=== PATIENT | male | born 1970 | race Caucasian/White ===

== ENCOUNTER 2017-10-05 12:11 | Inpatient (IN) | payer SELFPAY ==
[~2017-10-05 12:11] MED LIST: ISOVUE-370 76%-LOCM 1 ML ONE
[2017-10-05 13:00] LABS: Hemoglobin 15.1 g/dL (14.0-18.0); Mean Corpuscular HGB CONC 32.5 g/dL (32.0-36.0); Mean Corpuscular Hemoglobin 29.3 pg (27.0-31.0); Mean Corpuscular Volume 90.2 fl (80.0-94.0); Mean Platelet Volume 9.7 fL (7.4-10.4); Platelet Count 190 thou/uL (130-400); RBC Distribution Width 11.8 % (11.5-14.5); Red Blood Cell (RBC) Count 5.16 mill/uL (4.70-6.10); White Blood Cell (WBC) Count 18.3 thou/uL (4.8-10.8)
[2017-10-05 13:19] LABS: Band 18 % (5-11); Lymphocytes 7 % (21-51); MDiff Complete? YES; Monocytes 5 % (0-10); Neutrophil 70 % (42-75); RBC Morphology Normal
[2017-10-05 13:22] LABS: ALT (SGPT) 18 U/L (8-55); AST (SGOT) 16 U/L (5-34); Alkaline Phosphatase 63 U/L (40-150); Anion Gap 15 mmol/L (10-20); BUN (Urea Nitrogen) 12 mg/dL (8.9-20.6); Bilirubin, Total 1.4 mg/dL (0.2-1.2); CK (CPK) 142 U/L (30-200); Calc. Creatinine Clearance 0 mL/min (70-130); Carbon Dioxide 24 mmol/L (22-29); Chloride 100 mmol/L (98-107); Estimated GFR-MDRD Greater than 90; Globulin 4.1 g/dL (2.4-3.5); Glucose 127 mg/dL (70-105); Potassium 4.1 mmol/L (3.5-5.1); Protein, Total 8.1 g/dL (6.0-8.3); Sodium 135 mmol/L (136-145)
[2017-10-05 13:26] LABS: CKMB 2.5 ng/mL (0-6.6); Troponin I Less than 0.010 ng/mL (< 0.028)
--- NOTE | 2017-10-05 13:49 | RAD ---
CHEST ONE VIEW: History: Chest pain. FINDINGS: Cardiac silhouette and pulmonary vasculature are unremarkable. Mediastinum is midline. No lobar conso lidation or evidence of pneumothorax. personnel monitor leads overlie the chest. IMPRESSION: No active cardiopulmonary abnormalities are demonstrated. POS: TPC
--- NOTE | 2017-10-05 15:15 | CT ---
CT ANGIOGRMA THORAX WITH IV CONTRAST AND 3D RECONSTRUCTIONS: DATE: 10/05/17. HISTORY: Dyspnea, shortness of breath for the past week. Productive cough. COMPARISON: None available. FINDINGS: The thoracic aorta is normal in caliber without evidence of an aortic dissection. No filling defects are seen in the central or segmental pulmonary arteries. There is significant res piratory motion artifact in the lower lobes which limits adequate evaluation of the subsegmental pulm onary arteries, although no definitive filling defect is seen within the visualized opacified segment al pulmonary arteries. There are reticulonodular opacities with [id number]-type appearance involving the right upper lobe. No discrete pulmonary nodule is seen and there is no evidence of a pleural effusion. There are enlarged mediastinal lymph nodes with subcarinal lymph node measuring 1.4 cm and pretrachea l lymph node measuring approximately 0.9 cm as well a prominent prevascular space lymph node measurin g 1.2 cm in short axis dimension. Mediastinal lymphadenopathy may be reactive in origin. There are calcifications in the region of the coracoclavicular ligament which may be related to prior injury. No lytic or sclerotic osseous lesions are seen; however, there is a small hemangioma in the T9 verteb ral body. Imaging of the upper abdomen demonstrates 2 large cystic lesions within the superior pole right kidne y measuring 5.1 cm and 4.5 cm respectively, although the cystic lesions are incompletely imaged for m ore accurate measurement. Fluid attenuation is present within the visualized portions of the these c ystic structures probably related to superior pole right renal cyst, although incompletely assessed d ue to incomplete imaging. The remainder of the upper abdomen demonstrates a normal appearance. IMPRESSION: 1. Reticulonodular densities with rhhm-kt-unh-type appearance involving the right upper lobe. Findi ngs may be related to atypical infectious process. 2. Suboptimal evaluation of the subsegmental pulmonary arteries in the lower lobes bilaterally due t o prominent respiratory motion. However, there is otherwise no evidence of a pulmonary embolus invol ving the remaining pulmonary arteries bilaterally. 3. Mediastinal lymphadenopathy which may be reactive in origin. 4. Incomplete imaging of 2 hypodense right renal cystic lesions. However, these cystic lesions do d emonstrate fluid attenuation where visualized suggesting these are related to bilateral renal cysts. However, nonemergent renal sonogram would be helpful to fully characterize and evaluate these cystic lesions. POS: PADMINI
[2017-10-05] MEDS ORDERED: cefTRIAXone\\ROCEPHIN 2 GM VIAL ONE (15:18)
[2017-10-05] MEDS ORDERED: Bisacodyl 5 MG TAB PO PRN (16:21)
[2017-10-05] MEDS ORDERED: Acetaminophen 325 MG TAB PO PRN (16:21)
--- NOTE | 2017-10-05 17:15 | HP ---
PRIMARY CARE PROVIDER: None. CHIEF COMPLAINT: Shortness of breath. HISTORY OF PRESENT ILLNESS: Mr. Bush is a pleasant 46-year-old gentleman who was seen at [facility] on 10/05/2017. He reports that he was recently incarcerated. While in retirement, he was wheezing. He was seen by Dr. Marshall De La Garza and prescribed an inhaler for wheezing. He was never formally diagnosed with any respi ratory problem. Now he lives in the community. One week ago, he developed shortness of breath. He noticed it while he was moving. He reports the shortness of breath is with exertion. He denies any orthopnea or paro xysmal nocturnal dyspnea. He also reports cough over the last week, which is productive of greenish sputum. He denies any fevers or chills. He reports chronic right shoulder pain. He denies any abdo marcela pain. He denies any body aches other than the shoulder pain. He denies any chest pain. REVIEW OF SYSTEMS: All other systems reviewed and found to be negative. PAST MEDICAL HISTORY: None. PAST SURGICAL HISTORY: None. SOCIAL HISTORY: The patient smokes 1 pack of cigarettes a day. He denies alcohol use or recreationa l drug use. FAMILY HISTORY: No family history of any heart diseases or lung diseases. ALLERGIES: No known drug allergies. CURRENT MEDICATIONS: None. PHYSICAL EXAMINATION: GENERAL: On examination, Mr. Bush is awake and alert, not in acute distress. VITAL SIGNS: Blood pressure is 131/77, pulse is 103, he is breathing at rate of 17 and saturating 96 % on room air. T-max in the emergency room is 99.6 degrees Fahrenheit. EYES: No scleral icterus. No conjunctival pallor. ENT: Moist mucosal membranes, no oropharyngeal erythema or exudates. NECK: Supple, nontender, trachea is midline. RESPIRATORY: Accessory muscles of breathing are not active. Chest wall movements are symmetric bila terally. He has diffuse expiratory wheeze. CARDIOVASCULAR: S1 and S2 are heard, tachycardic and regular. Peripheral pulses palpable. No carot id bruit, no pericardial rub. ABDOMEN: Soft, nontender, bowel sounds are heard, no hepatomegaly, no splenomegaly. NEUROLOGIC: Cranial nerves II-XII intact. Deep tendon reflexes are 2+. MUSCULOSKELETAL: Power is 5/5 in all 4 extremities. SKIN: Multiple tattoos, no rashes. LYMPHATIC: No cervical lymphadenopathy. PSYCHIATRIC: Normal mood, normal affect, patient is oriented to person, place, and time. LABORATORY DATA AND IMAGING: Mr. Bush's labs and investigations were reviewed. I reviewed his mirna ctrocardiogram, which shows sinus tachycardia, no ST changes to suggest an acute coronary syndrome. I also reviewed his chest x-ray, which does not show any pulmonary infiltrates. He also had CT angio gram of the chest, which showed reticulonodular densities with tree-in-bud type appearance involving the right upper lobe, may be related to atypical infectious process. He had mediastinal lymphadenopa thy, which may be reactive in origin. There was no evidence of pulmonary embolus, although it was a suboptimal study due to prominent respiratory motion. He had two right renal cystic lesions, radiolo gist recommends a nonemergent renal sonogram to fully characterize and evaluate this cystic lesions. Laboratory investigations show leukocytosis with 18,300 white cells, of which 70% are neutrophils and 18% bands, normal hemoglobin, normal platelet count, decreased sodium of 135, normal potassium, norm al creatinine, elevated total bilirubin of 1.4, otherwise unremarkable liver profile, normal troponin I and normal BNP. Lactic acid is normal. ASSESSMENT AND PLAN: Mr. Bush is a pleasant 46-year-old gentleman, who was seen at [facility] on 10/05/2017. His problem list includes: 1. Sepsis: He is presenting with sepsis, suspected source of infection in the lung, likely atypical pneumonia. He will be admitted to the hospital for further management including intravenous fluid r esuscitation and antibiotics. 2. Atypical pneumonia: The patient has received ceftriaxone and azithromycin, which I will continue . Await blood cultures. 3. Hyponatremia: Mild, likely asymptomatic. Recheck sodium level after intravenous hydration. 4. Renal cysts: We will order a renal ultrasound to evaluate these cysts further. 5. Tobacco abuse: The patient has been counseled regarding tobacco cessation. Start the patient on nicotine replacement therapy. LEVEL OF RISK: High. LEVEL OF COMPLEXITY: High.
--- NOTE | 2017-10-05 18:03 | ULT ---
RENAL ULTRASOUND: HISTORY: Follow up renal cyst. COMPARISON: CT chest performed on 10/05/2017, which described two hypodensities in the right kidney. FINDINGS: The right kidney measures 12.7 cm in length. There are two cysts on the right, one in the upper pole , measuring up to 4.3 cm, and the other in the mid pole, measuring 4 to 5 cm. Both of these show sim ple cystic characteristics by ultrasound. No hydronephrosis. The left kidney measures 10 cm in length. There is a small 1 cm cyst upper pole left kidney. The bladder is only partially distended but appears unremarkable as visualized. IMPRESSION: There are bilateral renal cysts. No suspicious renal lesion identified by ultrasound. POS: PADMINI
[2017-10-05] MEDS ORDERED: Azithromycin 500 MG VIAL ONE (18:18)
[2017-10-05] MEDS: Sodium Chloride 0.9% 1,000 ML IV SCH (20:15)
[2017-10-05] MEDS: Nicotine 21 MG PATCH TD SCH (20:22)
[2017-10-05] MEDS: Azithromycin 500 MG in Sodium Chloride 0.9% 250 ML 250 ML IVPB SCH (20:22)
[2017-10-05 21:28] VITALS: BMI 23.8
[2017-10-06 05:07] LABS: Anion Gap 13 mmol/L (10-20); BUN (Urea Nitrogen) 8 mg/dL (8.9-20.6); Calc. Creatinine Clearance 136 mL/min (70-130); Carbon Dioxide 25 mmol/L (22-29); Chloride 107 mmol/L (98-107); Estimated GFR-MDRD Greater than 90; Glucose 109 mg/dL (70-105); Potassium 4.1 mmol/L (3.5-5.1); Sodium 141 mmol/L (136-145)
[2017-10-06 05:24] LABS: Band 10 % (5-11); Eosinophils 2 % (0-10); Lymphocytes 2 % (21-51); MDiff Complete? YES; Mean Corpuscular HGB CONC 32.2 g/dL (32.0-36.0); Mean Corpuscular Hemoglobin 29.1 pg (27.0-31.0); Mean Corpuscular Volume 90.5 fl (80.0-94.0); Mean Platelet Volume 9.6 fL (7.4-10.4); Monocytes 7 % (0-10); Neutrophil 79 % (42-75); Platelet Count 195 thou/uL (130-400); RBC Distribution Width 11.8 % (11.5-14.5); Red Blood Cell (RBC) Count 4.79 mill/uL (4.70-6.10); White Blood Cell (WBC) Count 17.1 thou/uL (4.8-10.8)
[2017-10-06] MEDS: Sodium Chloride 0.9% 1,000 ML IV SCH ×2 (06:37→16:30)
[2017-10-06] MEDS: Enoxaparin Sodium 40 MG/0.4 ML SYRINGE SC SCH (09:10)
[2017-10-06] MEDS ORDERED: Mometasone/Formoterol 120 PUFF INHALER INH SCH (10:00)
--- NOTE | 2017-10-06 12:07 | PDOC.PN ---
- Subjective Encounter Start Date: 10/06/17 Encounter Start Time: 12:04 Subjective: feels much better.still some SOB and wheezing - Objective MAR Reviewed: Yes Vital Signs & Weight: Vital Signs (12 hours) Temp Pulse Resp BP Pulse Ox 10/06/17 11:43 98.7 F 101 H 18 135/90 91 L 10/06/17 11:03 100 20 94 L 10/06/17 08:00 98.3 F 96 18 10/06/17 07:40 98.3 F 96 18 133/92 H 93 L 10/06/17 06:45 96 18 95 10/06/17 04:50 98.1 F 96 20 170/98 H 95 10/06/17 01:05 98.2 F 93 18 168/84 H 96 Weight Weight 156 lb 14.4 oz I&O: 10/05/17 10/06/17 10/07/17 06:59 06:59 06:59 Intake Total 1300 Balance 1300 Result Diagrams: 10/06/17 03:41 10/06/17 03:41 Additional Labs: Labs reviewed Phys Exam - Physical Examination Constitutional: NAD HEENT: PERRLA, moist MMs, sclera anicteric, oral pharynx no lesions Neck: no nodes, no JVD, supple, full ROM Respiratory: no rales, no rhonchi, wheezing present Cardiovascular: RRR, no significant murmur, no rub Gastrointestinal: soft, non-tender, no distention, positive bowel sounds Musculoskeletal: no edema, pulses present Neurological: non-focal, normal sensation, moves all 4 limbs Psychiatric: normal affect, A&O x 3 Skin: no rash, normal turgor, cap refill <2 seconds Dx/Plan (1) Sepsis Code(s): A41.9 - SEPSIS, UNSPECIFIED ORGANISM Status: Acute Qualifiers: Sepsis type: sepsis due to unspecified organism Qualified Code(s): A41.9 - Sepsis, unspecified organism (2) PNA (pneumonia) Code(s): J18.9 - PNEUMONIA, UNSPECIFIED ORGANISM Status: Acute (3) Hyponatremia Code(s): E87.1 - HYPO-OSMOLALITY AND HYPONATREMIA Status: Acute (4) Tobacco abuse Code(s): Z72.0 - TOBACCO USE Status: Acute (5) Tobacco abuse counseling Code(s): Z71.6 - TOBACCO ABUSE COUNSELING Status: Acute - Plan plan discussed w/ family, continue antibiotics, respiratory therapy, incentive spirometry, out of bed/ambulate, DVT proph w/SCDs add Dulera and increase duoneb to scheduled as wheezing persists -: cont empiric IV ABx. following final Cx results -: tobacco cessation advised. -: wbc trending down-monitor. -: likley home in am if clinically better * . Review of Systems - Review of Systems Constitutional: weakness, malaise. negative: fever, chills, sweats, other Respiratory: Shortness of Breath, SOB with Excertion, Wheezing. negative: Cough , Dry, Hemoptysis, Pleuritic Pain, Sputum Cardiovascular: negative: chest pain, palpitations, orthopnea, paroxysmal nocturnal dyspnea, edema, light headedness, other Gastrointestinal: negative: Nausea, Vomiting, Abdominal Pain, Diarrhea, Constipation, Melena, Hematochezia, Other Genitourinary: negative: Dysuria, Frequency, Incontinence, Hematuria, Retention , Other Musculoskeletal: negative: Neck Pain, Shoulder Pain, Arm Pain, Back Pain, Hand Pain, Leg Pain, Foot Pain, Other Neurological: negative: Weakness, Numbness, Incoordination, Change in Speech, Confusion, Seizures, Other - Medications/Allergies Allergies/Adverse Reactions: Allergies Allergy/AdvReac Type Severity Reaction Status Date / Time No Known Drug Allergies Allergy Verified 10/05/17 16:21 Medications: Current Medications Acetaminophen (Tylenol) 650 mg PO Q4H PRN PRN Reason: Headache/Fever or Pain Last Admin: 10/05/17 20:15 Dose: 650 mg Albuterol/Ipratropium (Duoneb) 3 ml NEB Q6H PRN PRN Reason: Dyspnea/Wheezing/SOB Last Admin: 10/06/17 06:45 Dose: 3 ml Albuterol/Ipratropium (Duoneb) 3 ml NEB [id number] FAITH Bisacodyl (Dulcolax) 10 mg PO DAILYPRN PRN PRN Reason: Constipation Enoxaparin Sodium (Lovenox) 40 mg SC 0900 [facility] Last Admin: 10/06/17 09:10 Dose: Not Given Azithromycin 500 mg/ Sodium (Chloride) 250 mls @ 250 mls/hr IVPB Q24HR [facility] Last Admin: 10/05/17 20:22 Dose: Not Given Ceftriaxone Sodium 1 gm/ (Sodium Chloride) 100 mls @ 200 mls/hr IVPB 1600 FAITH Sodium Chloride (Normal Saline 0.9%) 1,000 mls @ 70 mls/hr IV .[id number] [facility] Last Admin: 10/06/17 06:37 Dose: Not Given Mometasone Furoate/Formoterol Fumar (Dulera 200 Mcg/5 Mcg Inhaler) 1 puff INH BID-RT [facility] Nicotine (Nicoderm Patch) 21 mg TD Q24HR [facility] Last Admin: 10/05/17 20:22 Dose: 21 mg
[2017-10-06] MEDS ORDERED: cefTRIAXone\\ROCEPHIN 1 GM in Sodium Chloride 0.9% 100 ML IVPB SCH (16:00)
[2017-10-06] MEDS: Azithromycin 500 MG in Sodium Chloride 0.9% 250 ML 250 ML IVPB SCH (16:29)
[2017-10-06] MEDS: Mometasone/Formoterol 120 PUFF INHALER INH SCH (18:46)
[2017-10-06] MEDS: Nicotine 21 MG PATCH TD SCH (20:50)
[2017-10-06] MEDS: guaiFENesin ER 600 MG TAB PO SCH (20:50)
[2017-10-07 05:36] LABS: #Eosinphils 0.3 thou/uL (0.0-0.7); #Lymphocytes 1.4 thou/uL (1.20-3.40); #Monocytes 0.9 thou/uL (0.11-0.59); #Neutrophils 8.1 thou/uL (1.40-6.50); %Basophils 0.2 % (0.0-1.0); %Lymphocytes 12.7 % (21.0-51.0); %Monocytes 8.1 % (0.0-10.0); Hemoglobin 13.2 g/dL (14.0-18.0); Mean Corpuscular Hemoglobin 29.9 pg (27.0-31.0); Mean Corpuscular Volume 90.6 fl (80.0-94.0); Mean Platelet Volume 9.3 fL (7.4-10.4); Platelet Count 189 thou/uL (130-400); RBC Distribution Width 11.9 % (11.5-14.5); Red Blood Cell (RBC) Count 4.41 mill/uL (4.70-6.10); White Blood Cell (WBC) Count 10.6 thou/uL (4.8-10.8)
[2017-10-07] MEDS: Mometasone/Formoterol 120 PUFF INHALER INH SCH (06:19)
[2017-10-07 07:20] VITALS: TEMP 98.5
[2017-10-07] MEDS: Enoxaparin Sodium 40 MG/0.4 ML SYRINGE SC SCH (08:37)
[2017-10-07] MEDS: guaiFENesin ER 600 MG TAB PO SCH (08:37)
[2017-10-07] MEDS ORDERED: BECLOMETHASONE DIPROPIONATE 40 MCG INH SCH (09:00)
[2017-10-07 11:08] VITALS: BP 129/80
[2017-10-07] MEDS: Sodium Chloride 0.9% 1,000 ML IV SCH (12:34)
--- NOTE | 2017-10-07 13:30 | DIS ---
DATE OF ADMISSION: 10/05/2017 DATE OF DISCHARGE: 10/07/2017 CONDITION AT THE TIME OF DISCHARGE: Stable and improved. DISCHARGE DIAGNOSES: 1. Community-acquired pneumonia. 2. Hyponatremia, resolved. 3. Tobacco abuse. DISCHARGE MEDICATIONS: Omnicef 600 mg p.o. b.i.d. for 7 more days, nebulizers, DuoNebs q.i.d. as nee ded, nicotine patch 21 mg transdermal daily, Qvar 40 mcg daily, albuterol inhaler 1 puff 4 hours as n eeded. PRIMARY CARE PHYSICIAN: [facility]. PROCEDURES DONE IN THE HOSPITAL: 1. CT angio of the thorax which shows reticulonodular densities with tree-in-bud appearance involvin g the right upper lobe suggesting atypical infection as well as negative for pulmonary embolism. 2. Renal ultrasound, which shows bilateral renal cysts without any other suspicious renal lesion. HISTORY OF PRESENTING ILLNESS: Mr. Bush is a 46-year-old male without any significant past medical history who was a chronic smoker, presented to the emergency room with complaints of shortness of br eath. He was recently released from the care home and he reports that he was wheezing. His primary car e physician prescribed him an inhaler for wheezing, but it did not help. He also was having cough wi th production of greenish sputum without any fever or chills. Upon presentation, he was hemodynamica lly stable with oxygen saturation of 96% on room air. He did have leukocytosis with left shift and b andemia on presentation as well as mild hyponatremia with sodium of 135. His chest x-ray did not duglas w any pulmonary infiltrate, but he also underwent a CT angio which showed signs of atypical pneumonia . He was admitted to the hospital on the medical floor with a presumptive diagnosis of sepsis and at ypical pneumonia. He was started on empiric IV antibiotics and IV fluids. Please see admission hist ory and physical for further details. HOSPITAL COURSE: The patient did very well with IV antibiotics. His white blood cell count came pretty k down to normal on the day of discharge at 10.6. He had significant clinical improvement. Blood cu ltures were drawn at the time of admission and were negative at the time of discharge with final resu lts pending at this time. On the day of discharge, he is back to his baseline. He was noticed to have some wheezing for which he was started on nebulizers in the hospital. He was also started on nicotine patch and tobacco abus e counseling was provided and he appears receptive. He was given prescription for all the medication s as above. He was also seen and examined prior to discharge. PHYSICAL EXAMINATION: VITAL SIGNS: This morning, temperature 98.5, pulse of 90, respirations 16, saturating 94% on room ai r, blood pressure 129/80. GENERAL: No acute distress, awake, alert, oriented x3. CHEST: Has no evidence of any wheezes. He does have some rhonchi bilaterally. Air entry is equal i n both lungs. Rate and rhythm is regular. NEUROLOGIC: Examination is nonfocal. He reports that he has an upcoming appointment at the [facility]. He is encouraged to omega p up appointment as well as be medication compliant and quit smoking. All the questions were answere d and discharge planning was discussed with the patient and his family.
--- NOTE | 2017-10-07 14:47 | EKG ---
Test Reason : Blood Pressure : / mmHG Vent. Rate : 117 BPM Atrial Rate : 117 BPM P-R Int : 092 ms QRS Dur : 078 ms QT Int : 288 ms P-R-T Axes : 073 083 070 degrees QTc Int : 401 ms Sinus tachycardia with short WA Biatrial enlargement Abnormal ECG Confirmed by TANNER JACOBO ([id number]), industrial editor VEL SARAVIA ([id number] on 10/07/2017 2:46:54 PM Referred By: Confirmed By:TANNER JACOBO
--- NOTE | 2017-10-08 12:25 | PQF ---
[employer] Melter Assistant Crystal Reports Winform Viewer [facility] CLINICAL DOCUMENTATION CLARIFICATION FORM: POST DISCHARGE Addendum to original discharge summary date: ____ Late entry note date: __ Please exercise your independent, professional judgment in responding to the clarification form. Clinical indicators are provided on the bottom of this form for your review Please check appropriate box(s) to clarify if the following diagnosis has been ruled in or ruled out: Sepsis (CDI/Coding list diagnosis here) [ ] Ruled in diagnosis [ ] Continue to treat [ ] Resolved [ ] Ruled out diagnosis [ ] Cannot rule out diagnosis [ ] Other diagnosis [ X ] Unable to determine In addition, please specify: Present on Admission (POA): [ ] Yes [ ] No [ ] Unable to determine For continuity of documentation, please document condition throughout progress notes and discharge summary. Thank You. CLINICAL INDICATORS - SIGNS / SYMPTOMS / LABS To support the diagnosis To support resolution of diagnosis- Discharge Summary- Blood cultures where drawn an the time of admission and were negative at the time of discharge with final results pending a this time. " Presumptive diagnosis of sepsis and atypical pneumonia." RISK FACTORS To support diagnosis- Documented in ED and in Progress notes PNEUMONIA TREATMENTS To support diagnosis- IV antibiotics IV fluids This form is maintained as a part of the permanent medical record) 2014 [employer]. All Rights Reserved Taylor [email or web address] [phone] [email or web address]
== END 2017-10-07 12:45 | disposition home or self-care (01) | DRG 194 ==
LOC: ERS 12:11 → T4-A 15:24
PROVIDERS: ADMIT Internal Medicine; ATTEND Internal Medicine
DX: J18.9 Pneumonia, unspecified organism (principal); E87.1 Hypo-osmolality and hyponatremia; F17.210 Nicotine dependence, cigarettes, uncomplicated; Z71.6 Tobacco abuse counseling; N28.1 Cyst of kidney, acquired
CPT/HCPCS: 36415; 71045; 71275; 76770; 80048; 80053; 82553; 83605; 83880; 84484; 85025; 87040; 93005; 94640; 94664; 94760; 96361; 96365; 96367; 99406; J0456; J0696; J1650; J7050; J7620

== ENCOUNTER 2022-09-04 12:35 | Emergency (ER) | payer OTHER, SELFPAY ==
[~2022-09-04 12:35] MED LIST changes: -ISOVUE-370 76%-LOCM 1 ML ONE; +Iopamidol-370 76% 500 ML MDV (1 ML CHARGE) ONE
[2022-09-04 14:49] LABS: #Basophils 0.1 thou/uL (0.0-0.2); #Eosinphils 0.4 thou/uL (0.0-0.7); #Monocytes 1.2 thou/uL (0.11-0.59); #Neutrophils 9.9 thou/uL (1.40-6.50); %Basophils 0.7 % (0.0-1.0); %Eosinophils 3.2 % (0.0-10.0); %Lymphocytes 8.1 % (21.0-51.0); %Monocytes 9.7 % (0.0-10.0); %Neutrophils 77.9 % (42.0-75.0); Hemoglobin 15.3 g/dL (14.0-18.0); Mean Corpuscular HGB CONC 32.8 g/dL (32.0-36.0); Mean Corpuscular Hemoglobin 28.8 pg (27.0-31.0); Mean Corpuscular Volume 87.8 fl (78.0-98.0); Mean Platelet Volume 11.7 fL (7.4-10.4); Platelet Count 228 10x3/uL (130-400); RBC Distribution Width 12.2 % (11.5-14.5); Red Blood Cell (RBC) Count 5.32 mill/uL (4.70-6.10); White Blood Cell (WBC) Count 12.7 10x3/uL (4.8-10.8)
[2022-09-04 15:06] LABS: ALT (SGPT) 17 U/L (8-55); AST (SGOT) 13 U/L (5-34); Albumin 4.4 g/dL (3.5-5.0); Alkaline Phosphatase 77 U/L (40-110); Anion Gap 12 mmol/L (10-20); BUN (Urea Nitrogen) 23 mg/dL (8.4-25.7); Bilirubin, Total 0.4 mg/dL (0.2-1.2); Calc. Creatinine Clearance 0 mL/min (70-130); Calcium 9.7 mg/dL (7.8-10.44); Carbon Dioxide 26 mmol/L (22-29); Chloride 103 mmol/L (98-107); Estimated GFR 95; Globulin 3.7 g/dL (2.4-3.5); Glucose 103 mg/dL (70-105); Potassium 4.1 mmol/L (3.5-5.1); Protein, Total 8.1 g/dL (6.0-8.3); Sodium 137 mmol/L (136-145)
== END 2022-09-04 16:20 | disposition home or self-care (01) ==
LOC: ERS 12:35
DX: K57.30 Diverticulosis of large intestine without perforation or abscess without bleeding (principal); I10 Essential (primary) hypertension; J45.909 Unspecified asthma, uncomplicated; N28.1 Cyst of kidney, acquired; F17.220 Nicotine dependence, chewing tobacco, uncomplicated; V49.10XA Passenger injured in collision with unspecified motor vehicles in nontraffic accident, initial encounter; Y92.410 Unspecified street and highway as the place of occurrence of the external cause
CPT/HCPCS: 36415; 71260; 74177; 80053; 85025